=== PATIENT | male | born 1995 | race Caucasian/White ===

== ENCOUNTER 2025-10-24 09:45 | Emergency (ER) | payer MEDICAID ==
[~2025-10-24] VITALS: Ht 190.5 cm; Wt 97.7 kg
[~2025-10-24 09:45] MED LIST: ACET-3385 PO; DOXY-354 PO; IBUP-1492 PO
[2025-10-24] MEDS ORDERED: EPIN0.3P3 IM (10:11)
[2025-10-24 10:49] VITALS: BP 112/71; PULSE 67; RESP 18; TEMP 98.5; O2SAT 98
== END 2025-10-24 11:27 | disposition home or self-care (01) ==
LOC: EMS 09:45
DX: T63.441A Toxic effect of venom of bees, accidental (unintentional), initial encounter (principal); F12.90 Cannabis use, unspecified, uncomplicated; Z91.030 Bee allergy status; Y92.89 Other specified places as the place of occurrence of the external cause
CPT/HCPCS: 99283; 96372; J1200; J7512